=== PATIENT | male | born 1965 | race Caucasian/White ===

== ENCOUNTER 2023-02-01 09:22 | Outpatient (REF) | payer OTHER, SELFPAY ==
[2023-02-01 11:22] LABS: Appearance Urine Clear; Color Urine Yellow; Glucose Urine UA Negative (Negative); Leukocyte Esterase Urine Negative (Negative); Nitrite Urine Negative (Negative); Urine Blood Negative (Negative); Urine Ketones Negative (Negative); Urine Protein Negative (Neg-Trace)
[2023-02-01 11:26] LABS: MANUAL DIFF FLAG NO
[2023-02-01 11:32] LABS: Basophils Percent Auto 0.7 % (0-2); Eosinophils Absolute Auto 0.2 X10*3/uL (0.0-0.4); Eosinophils Percent Auto 2.8 % (0-4); Hematocrit 45.8 % (42.0-52.0); Hemoglobin 15.1 g/dl (14.0-18.0); Imm Gran Abs Auto 0.02 X10*3/uL (0.00-0.03); Imm Gran Pct Auto 0.3 % (0.0-0.4); Lymphocytes Absolute Auto 1.9 X10*3/uL (1.2-4.9); Lymphocytes Percent Auto 32.4 % (20-40); Mean Corpuscular Hemoglobin 31.1 pg (27.0-33.0); Mean Corpuscular Volume 94.2 fL (80.0-98.0); Mean Platelet Volume 11.5 fL (9.4-12.4); Monocytes Absolute Auto 0.6 X10*3/uL (0.1-1.2); Monocytes Percent Auto 11.1 % (2-11); Neutrophils Percent Auto 52.7 % (45-73); Platelet Count 230 X10*3/uL (160-400); Red Blood Count 4.86 X10*6/uL (4.60-5.80); Red Cell Distribution Width 12.5 % (11.0-16.0); White Blood Count 5.8 X10*3/uL (4.8-10.8)
[2023-02-01 12:11] LABS: Alanine Aminotransferase 18 U/L (0-40); Albumin Level 4.1 g/dL (3.5-5.0); Alkaline Phosphatase 61 U/L (39-117); Anion Gap 10 (12-20); Aspartate Amino Transferase 16 U/L (5-37); Bilirubin Total 0.9 mg/dL (0.0-1.0); Blood Urea Nitrogen 11 mg/dL (9-16); Calcium 9.4 mg/dL (8.4-10.2); Carbon Dioxide 26 mmol/L (22-29); Chloride 109 mmol/L (96-108); Cholesterol 151 mg/dL; Estimated Glomerular Filt Rate > 60; Glucose Fasting 103 mg/dL (60-99); HDL Cholesterol 47 mg/dL; LDL Cholesterol Calculated 88 mg/dl; Potassium 4.6 mmol/L (3.3-5.1); Sodium 140 mmol/L (135-145); Total Protein 6.4 g/dL (6.5-8.0); Triglycerides 83 mg/dL
[2023-02-01 12:15] LABS: Prostate Specific Antigen Scr 0.25 ng/mL (<0.05-4.0)
== END 2023-02-01 09:23 | disposition home or self-care (01) ==
LOC: HO.HMGCLDS 09:22
PROVIDERS: PCP Internal Medicine; Visit Provider Internal Medicine
DX: Z00.00 Encounter for general adult medical examination without abnormal findings (principal); Z12.5 Encounter for screening for malignant neoplasm of prostate; E78.00 Pure hypercholesterolemia, unspecified; E66.9 Obesity, unspecified
CPT/HCPCS: 36415; 80053; 80061; 81003; 84153; 85025

== ENCOUNTER → 2023-02-07 08:06 | Outpatient (REF) | payer OTHER, SELFPAY ==
--- NOTE | 2023-02-07 08:08 | CA_ITS ---
Acquisition Time: 2023-02-07 08:54:27 Total Exercise Time: 00:05:01 Test Indications: abn ekg Medications: see h Protocol: ZEFERINO Max HR: 157 BPM 96% of Pred: 163 BPM Max BP: 204/062 mmHG Max Work Load: 7.0 METS pt exercised on std zeferino protocol for 5 min into stage 2. max hr 155-95%max. pvc's in couplets and multifocal. some stdep in ant precordial leads. no c/o cp or sob. no feeling of reported palp. clinically neg but elec positive Referred By: Tristian Cedillo Overread By: DRAKE CEDILLO MD
== END ==
LOC: HO.CARD 08:06
PROVIDERS: PCP Internal Medicine; Visit Provider Internal Medicine
DX: R94.31 Abnormal electrocardiogram [ECG] [EKG] (principal)
CPT/HCPCS: 93017

== ENCOUNTER → 2023-02-08 14:56 | Outpatient (BNVA) | payer OTHER, SELFPAY | PROVIDERS: PCP Internal Medicine; Visit Provider Internal Medicine Cardiovascular Disease | DX: I10 Essential (primary) hypertension (principal); I49.3 Ventricular premature depolarization | CPT/HCPCS: 93005 ==

== ENCOUNTER → 2023-03-13 09:48 | Outpatient (REF) | payer OTHER, SELFPAY ==
--- NOTE | 2023-03-13 09:50 | CA_ITS ---
Transthoracic Echocardiogram Patient (Last, First, Middle): Abiodun Cornelius C Gender: Male Date of : 1965 Age: 57 Procedure Date: 03/13/2023 Procedure Type: Transthoracic Echocardiogram Location: OP Height: 187.96 cm Weight: 108.86 kg BSA: 2.35 m2 Heart Rate: bpm BP: 128 / 80 mmHg Bed And Breakfast Cook: Referring MD: Darrel Katz MD Jewel Bearing Polisher: Darrel Katz MD Symptoms: I49.3 - Ventricular premature depolarization Study Quality: Fair ECG Rhythm: Sinus Conclusions: - Normal left ventricular size, thickness, and systolic function. The visually estimated ejection fraction is between 55-60%. - The basal inferior segment is akinetic. - Normal right ventricular cavity size and systolic function. - There is mild calcification of the aortic valve. Findings Left Ventricle Normal left ventricular size, thickness, and systolic function. The visually estimated ejection fraction is between 55-60%. There is evidence of regional wall motion abnormalities. Diastolic function is normal for age. Wall Motion Rest Echo Findings The basal inferior segment is akinetic. Right Ventricle Normal right ventricular cavity size and systolic function. Atria The left atrium is normal in size. The right atrium is normal in size. Aortic Valve There is mild calcification of the aortic valve. There is no aortic valve stenosis. There is mild aortic valve regurgitation. Aortic valve is not well visualized and cannot rule out bicuspid valve. Mitral Valve The mitral valve appears normal. There is trace mitral valve regurgitation. There is no mitral valve stenosis. Pulmonic Valve Normal pulmonic valve structure and function. There is trace pulmonic valve regurgitation. Tricuspid Valve Normal tricuspid valve structure. There is trace tricuspid valve regurgitation. Normal right atrial pressure. There is no evidence of pulmonary hypertension. Great Vessels All visible segments of the aorta are normal in size. Venous The inferior vena cava is normal in size and collapses greater than 50% with inspiration. Pericardium/Pleural There is no evidence of pericardial effusion. Prior Study Comparison No prior study available for comparison. Measurements 2D Linear Measurements IVSd: 1.02 0.6-0.9/0.6-1.0 cm LVIDd: 4.81 3.9-5.3/4.2-5.9 cm LVIDd Index: 2.05 2.4-3.2/2.2-3.1 cm/m2 LVIDs: 3.17 2.0-3.6 cm LVPWd: 1.02 0.7-1.1 cm Ao Root: 3.30 2.1-3.5 cm LA Diam: 3.80 2.7-3.8/3.0-4.0 cm LAIDs Index: 1.62 1.5-2.3 cm/m2 LV Mass: 218.54 67-162/88-224 g LV Mass Index: 93.00 43-95/49-115 g/m2 LVOT Diam: 2.40 3.0+(-)1.3 cm 2D Systolic Function EF 4C: 59.70 >55% EF 2C: 55.00 >55% EF BiP: 59.10 >55% Mitral Valve MV Pk E: 0.79 MV PK A: 0.59 MV Decel Time: 209.00 E/A: 1.30 E'Lateral: 11.20 E'Medial: 7.94 E/E' Med: 9.90 E/E' Lat: 7.00 PHT: 61.00 MVA PHT: 3.61 Decel Leon: 3.77 Aortic Valve AoV Pk Linus: 1.08 AoV Mn Linus: 0.74 AoV VTI: 0.26 AoV Pk Grad: 5.00 Aov Mn Grad: 3.00 SHREE Cont.VTI: 3.27 LVOT LVOT Pk Linus: 0.78 LVOT Mn Linus: 0.51 LVOT VTI: 0.19 LVOT Pk Grad: 2.00 LVOT Mn Grad: 1.00 LVOT Diam: 2.40 LVOT Area: 4.52 Diastolic Function MV Pk E: 0.79 MV Pk A: 0.59 E/A: 1.30 E'Medial: 7.94 E/E' Med: 9.90 E' Laterial: 11.20 E/E' Lat: 7.00 Right Ventricle TAPSE (mm): 25.00 TVS' Linus: 12.00 Tricuspid Valve TR Pk Linus: 2.60 TR Pk Grad: 27.00 RA Press: 3.00 RVSP: 30.00 Great Vessels Aorta Ao Root-2D: 3.30 2.0-3.7 cm Ao Asc: 3.30 2.1-3.4 cm Ao Arch: 3.30 Pulmonary Valve PV Pk Linus: 0.96 Peak PV Grad: 4.00 Updated in Other Vendor System with Status of Final Darrel Katz MD electronically signed on 03/14/2023 10:34:05 AM with status of Final
--- NOTE | 2023-03-13 09:50 | HM_ITS ---
Conclusion: 1. Patient was monitored for total period of 3 days 2. Baseline was normal sinus rhythm with average heart of 67 beats per minute 3. No significant pauses greater than 2.5 seconds noted 4. Rare ectopy noted 5. No patient reported events MTDD
== END ==
LOC: HO.CARD 09:48
PROVIDERS: PCP Internal Medicine; Visit Provider Internal Medicine Cardiovascular Disease
DX: I49.3 Ventricular premature depolarization (principal)
CPT/HCPCS: 93242; 93306

== ENCOUNTER → 2023-03-21 14:34 | Outpatient (BNVA) | payer OTHER, SELFPAY | PROVIDERS: PCP Internal Medicine; Visit Provider Internal Medicine Cardiovascular Disease ==

== ENCOUNTER 2023-04-11 09:16 | Outpatient (REF) | payer OTHER, SELFPAY ==
[2023-04-11 20:08] LABS: Anion Gap 10 (12-20); Blood Urea Nitrogen 18 mg/dL (9-16); Calcium 8.6 mg/dL (8.4-10.2); Carbon Dioxide 26 mmol/L (22-29); Chloride 107 mmol/L (96-108); Estimated Glomerular Filt Rate > 60; Glucose Random 84 mg/dL (60-115); Potassium 4.2 mmol/L (3.3-5.1); Sodium 139 mmol/L (135-145)
== END 2023-04-11 09:17 | disposition home or self-care (01) ==
LOC: HO.HMGCLDS 09:16
PROVIDERS: PCP Internal Medicine; Visit Provider Internal Medicine Cardiovascular Disease
DX: I49.3 Ventricular premature depolarization (principal)
CPT/HCPCS: 36415; 80048

== ENCOUNTER 2023-09-18 15:07 | Outpatient (AMB) | payer OTHER, SELFPAY ==
[2023-09-18 15:09] VITALS: BP 120/80; PULSE 78; BMI 32.9
--- NOTE | 2023-09-18 15:09 | A.OFFVIS_ITS ---
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 It appears that this is the internal medicine office recently and his pulse was noticed to be irregular. Subsequent to that he had exercise stress test where he exercised 5 mins. He was noticed to have multifocal PVCs, frequent PVCs. He was also noticed to have precordial ST depressions. He did not have any CP or SOB. He is here for further work up. He is not very active physically and gets no significant symptoms in day to day life. He did have similar issues 15 years ago and at time had a normal stress test. He has high BP but reports white coat hypertension. He is on Atorvastatin 20 mg. After discussion she was started on carvedilol 6.25 mg B i.d.. Was referred for echocardiography. Echocardiography showed normal left ventricular ejection fraction of 55-60% with normal diastolic function but the basal inferior wall was akinetic. He was brought back for follow-up. He has no symptoms on follow-up and denies chest pain or shortness of breath. His blood pressure control is much better after starting carvedilol. Report of the echocardiography was discussed with the patient detail. 09/18/2023: He returns for follow-up. Chris kellogg has been doing well. No chest discomfort shortness of breath. He has been doing well with the current medications. Blood pressure control is good. He had coronary CTA performed in April 2023 which showed no evidence of hemodynamically significant coronary artery disease. Minimal plaque was noticed in the LAD. Clinically has been stable on the current medications. [facility] Surgical History No pertinent past surgical history Family History Mother HTN (hypertension) Father HTN (hypertension) Social History Alcohol intake: current Alcohol intake frequency: a few times a week Patient Tobacco Use Status: Never used Tobacco Review of Systems Const Denies chills, Denies fatigue, Denies fever(s), Denies frequent falls, Denies weakness, Denies weight gain and Denies weight loss ENT Denies dizziness Card Denies chest pain, Denies leg edema, Denies lightheadedness, Denies palpitations, Denies dyspnea, Denies dyspnea on exertion, Denies orthopnea and Denies other (loss of consciousness) Resp Denies cough, Denies dyspnea and Denies dyspnea on exertion GI Denies hematochezia and Denies change in stool character Musc Denies abnormal gait, Denies muscle weakness, Denies numbness, Denies radiating pain into limb and Denies tingling Neuro Denies abnormal gait, Denies dizziness, Denies frequent falls, Denies numbness, Denies tingling and Denies weakness Endo Denies fatigue and Denies palpitations Physical Exam Vital Signs: Last Vital Signs Pulse 78 09/18/23 15:09 BP 120/80 09/18/23 15:09 BMI result Body Mass Index 32.9 GENERAL APPEARANCE: in no acute distress, pleasant. Anxious appearing. NECK: no carotid bruit, no jugular venous distention. SKIN: no suspicious lesions, warm and dry. HEART: no murmurs, regular rate and rhythm. LUNGS: clear to auscultation bilaterally. ABDOMEN: soft, nontender. EXTREMITIES: no edema. Palms are sweaty. PERIPHERAL PULSES: equal. NEUROLOGIC: No gross deficits, AAO X 3 Assessment & Plan Assessment & Plan (1) Essential hypertension: Code(s): I10 - Essential (primary) hypertension (2) PVC (premature ventricular contraction): Code(s): I49.3 - Ventricular premature depolarization Plan Pleasant 58 year gentleman is here for follow-up. He has background of premature ventricular complexes which are well suppressed with carvedilol 6.25 mg twice a day. Blood pressure control is good. He is on atorvastatin 20 mg once a day. He should have fasting lipid panel once a year with a target LDL less than 70 given presence of minimal disease on coronary CTA. Stable otherwise. Can follow-up with us in 1 year. Thank you for allowing me to participate in the care of your patient. Please feel free to contact me if you have any questions. Coding Level of Care Code Est Pt Level 4 (37722) Diagnoses Essential hypertension I10 PVC (premature ventricular contraction) I49.3
== END 2023-09-18 15:32 | disposition home or self-care (01) ==
PROVIDERS: PCP Internal Medicine; Visit Provider Internal Medicine Cardiovascular Disease
DX: I10 Essential (primary) hypertension (principal); I49.3 Ventricular premature depolarization
CPT/HCPCS: 99214

== ENCOUNTER → 2023-09-18 15:07 | Outpatient (BNVA) | payer OTHER, SELFPAY | PROVIDERS: PCP Internal Medicine; Visit Provider Internal Medicine Cardiovascular Disease ==

== ENCOUNTER → 2024-09-07 08:49 | Outpatient (AMB) | payer BC, SELFPAY ==
[2024-09-07 09:17] VITALS: BP 140/72; PULSE 67; BMI 33.0
--- NOTE | 2024-09-07 09:17 | MHC.OFFVIS ---
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 It appears that this is the internal medicine office recently and his pulse was noticed to be irregular. Subsequent to that he had exercise stress test where he exercised 5 mins. He was noticed to have multifocal PVCs, frequent PVCs. He was also noticed to have precordial ST depressions. He did not have any CP or SOB. He is here for further work up. He is not very active physically and gets no significant symptoms in day to day life. He did have similar issues 15 years ago and at time had a normal stress test. He has high BP but reports white coat hypertension. He is on Atorvastatin 20 mg. After discussion she was started on carvedilol 6.25 mg B i.d.. Was referred for echocardiography. Echocardiography showed normal left ventricular ejection fraction of 55-60% with normal diastolic function but the basal inferior wall was akinetic. He was brought back for follow-up. He has no symptoms on follow-up and denies chest pain or shortness of breath. His blood pressure control is much better after starting carvedilol. Report of the echocardiography was discussed with the patient detail. 09/18/2023: He returns for follow-up. He has been doing well. No chest discomfort shortness of breath. He has been doing well with the current medications. Blood pressure control is good. He had coronary CTA performed in April 2023 which showed no evidence of hemodynamically significant coronary artery disease. Minimal plaque was noticed in the LAD. Clinically has been stable on the current medications. 09/07/2024: He is here for follow-up. Denying any symptoms. Over the holidays he has gained some weight. His blood pressure is elevated. He is saying that he has been missing carvedilol at times and has been taking it once a day. Some days he remembers and takes it twice a day. Blood pressure manually is 140/80. [facility] Surgical History No pertinent past surgical history Family History Mother HTN (hypertension) Father HTN (hypertension) Social History Alcohol intake: current Alcohol intake frequency: a few times a week Patient Tobacco Use Status: Never used Tobacco Review of Systems Const Denies chills, Denies fatigue, Denies fever(s), Denies frequent falls, Denies weakness, Denies weight gain and Denies weight loss ENT Denies dizziness Card Denies chest pain, Denies leg edema, Denies lightheadedness, Denies palpitations, Denies dyspnea and Denies dyspnea on exertion Resp Denies cough, Denies dyspnea and Denies dyspnea on exertion GI Denies hematochezia Musc Denies abnormal gait, Denies muscle weakness, Denies numbness, Denies radiating pain into limb and Denies tingling Neuro Denies abnormal gait, Denies dizziness, Denies frequent falls, Denies numbness, Denies tingling and Denies weakness Endo Denies fatigue and Denies palpitations Physical Exam Vital Signs: Last Vital Signs Pulse 67 09/07/24 09:17 BP 140/72 H 09/07/24 09:17 BMI result Body Mass Index 33.0 GENERAL APPEARANCE: in no acute distress, pleasant. NECK: no carotid bruit, no jugular venous distention. SKIN: no suspicious lesions, warm and dry. HEART: no murmurs, regular rate and rhythm. LUNGS: clear to auscultation bilaterally. ABDOMEN: soft, nontender. EXTREMITIES: no edema. Palms are sweaty. PERIPHERAL PULSES: equal. NEUROLOGIC: No gross deficits, AAO X 3 Office Procedures EKG Details: Sinus rhythm 67 beats per minute, normal axis, QTC 422 milliseconds. [id number], Complete Assessment & Plan Assessment & Plan (1) Essential hypertension: Code(s): I10 - Essential (primary) hypertension Category: Medical (2) PVC (premature ventricular contraction): Code(s): I49.3 - Ventricular premature depolarization Category: Medical Plan Pleasant 59-year-old gentleman who is here for follow-up. He has background of premature ventricular complexes which are well suppressed with carvedilol 6.25 mg. Blood pressure is elevated and he has not been taking carvedilol b.i.d. and has been missing doses. I have advised him to take it twice a day for the next 2 weeks and then we will bring him back for blood pressure check with 1 of the nurses. He is on atorvastatin 20 mg once a day. He should have fasting lipid panel once a year with a target LDL less than 70 given presence of minimal disease on coronary CTA. Stable otherwise. Can follow-up with us in 1 year. Thank you for allowing me to participate in the care of your patient. Please feel free to contact me if you have any questions. Coding Level of Care Code Est Pt Level 4 (98425) Diagnoses Essential hypertension I10 PVC (premature ventricular contraction) I49.3 CPT Codes EKG - CPT: 20809-[id number], Complete ([id number])
== END ==
PROVIDERS: PCP Internal Medicine; Visit Provider Internal Medicine Cardiovascular Disease
DX: I10 Essential (primary) hypertension (principal); I49.3 Ventricular premature depolarization
CPT/HCPCS: 93010; 99214

== ENCOUNTER 2025-05-27 10:05 | Outpatient (REF) | payer BC, SELFPAY ==
[2025-05-27 13:23] LABS: MANUAL DIFF FLAG NO
[2025-05-27 13:30] LABS: Hematocrit 43.7 % (42.0-52.0); Hemoglobin 14.9 g/dl (14.0-18.0); Imm Gran Abs Auto 0.01 X10*3/uL (0.00-0.03); Imm Gran Pct Auto 0.2 % (0.0-0.4); Lymphocytes Absolute Auto 1.5 X10*3/uL (1.2-4.9); Mean Corpuscular HGB Conc 34.1 g/dl (31.0-36.0); Mean Corpuscular Hemoglobin 32.0 pg (27.0-33.0); Mean Corpuscular Volume 93.8 fL (80.0-98.0); NRBC Abs Auto 0.000 X10*3/uL (0.0-0.012); NRBC Pct Auto 0.0 /100WBC (0.0-0.2); Platelet Count 235 X10*3/uL (160-400); Red Blood Count 4.66 X10*6/uL (4.60-5.80); White Blood Count 4.6 X10*3/uL (4.8-10.8)
[2025-05-27 13:40] LABS: Alanine Aminotransferase 19 U/L (0-40); Albumin Level 4.4 g/dL (3.5-5.0); Alkaline Phosphatase 55 U/L (39-117); Anion Gap 12 (12-20); Aspartate Amino Transferase 23 U/L (5-37); Blood Urea Nitrogen 14 mg/dL (9-16); Calcium 9.1 mg/dL (8.4-10.2); Carbon Dioxide 25 mmol/L (22-29); Chloride 109 mmol/L (96-108); Cholesterol 150 mg/dL (<200); Estimated Glomerular Filt Rate > 60; HDL Cholesterol 48 mg/dL (>40); Hemoglobin A1C 142.0809 umol/L; Potassium 4.4 mmol/L (3.3-5.1); Sodium 142 mmol/L (135-145); Total Hemoglobin (HGBA1C) 3807.0444 umol/L; Total Protein 6.6 g/dL (6.5-8.0); Triglycerides 87 mg/dL (<150)
[2025-05-27 13:59] LABS: Prostate Specific Antigen 0.34 ng/mL (<0.05-4.0)
== END 2025-05-27 10:06 | disposition home or self-care (01) ==
LOC: HO.HMGCLDS 10:05
PROVIDERS: PCP Physician Assistant; Visit Provider Physician Assistant
DX: I10 Essential (primary) hypertension (principal); E78.5 Hyperlipidemia, unspecified; Z12.5 Encounter for screening for malignant neoplasm of prostate; Z13.1 Encounter for screening for diabetes mellitus
CPT/HCPCS: 36415; 80048; 80061; 80076; 83036; 84153; 85025

== ENCOUNTER 2025-06-02 08:53 | Outpatient (AMB) | payer BC, SELFPAY ==
[2025-06-02 08:15] VITALS: BP 138/82; PULSE 72; TEMP 36.3; O2SAT 98; BMI 31.9
--- NOTE | 2025-06-02 08:15 | A.OFFPC_ITS ---
Vital Signs 06/02/25 08:15 Height 6 ft 1 in Weight 242 lb BMI 31.9 BP 138/82 Blood Pressure Location Lt brachial Position Sitting Pulse 72 Pulse Source Pulse Oximeter Temp 97.4 F Temp Source Temporal Artery Scan Pulse Oximetry (%) 98 Oxygen Delivery Method Room Air Intake Visit Reasons: over due OV Phd Intern Required: No Accompanied by: Self / Same As Patient Allergies No Known Allergies (No Known Allergies*) Allergy (Verified 06/02/25 08:16) Medication List - Last Reconciled 06/02/25 by DENI Matthew atorvastatin (Lipitor) 20 mg PO BEDTIME carvedilol 6.25 mg PO BID 90 days Tobacco use date assessed: 06/02/25 Dental Screening Dental Screen Date: 06/02/25 Did you have a dental visit in the last 12 months?: Yes Did you have a dental problem in the last 6 months where you did not have access to dental care?: No HPI HPI Comments History of Present Illness Details The patient is a 59-year-old male with HLD and HTN presenting to [facility] care and management of chronic conditions. The patient has a history of hyperlipidemia, currently managed with atorvastatin 20 mg daily, with recent cholesterol levels at 150 mg/dL, indicating good control. He also has hypertension, managed with carvedilol twice daily, with no reported issues or side effects from the medication. His BP today was 138/82 The patient reports presbyopia, using reading glasses as needed, and acknowledges the need for an eye examination, which is being arranged by his spouse. He experiences seasonal allergies, particularly in the fall, with mild symptoms noted recently. The patient has a scalyt lesion on his head, which is not causing any discomfort. Chronic back pain is noted, with severe episodes occurring infrequently, the last being over a year ago. He manages mild episodes with ibuprofen and has previously been prescribed prednisone during severe episodes, which provided relief. [facility] Medical History (Updated 06/02/25 @ 09:43 by DENI Matthew) HLD (hyperlipidemia) Intermittent low back pain Keratosis, seborrheic Obesity (BMI 30.0-34.9) Presbyopia Seasonal allergic rhinitis Surgical History No pertinent past surgical history Family History Mother HTN (hypertension) Father HTN (hypertension) Social History Housing: House Alcohol intake: current Alcohol intake frequency: a few times a week Patient Tobacco Use Status: Never used Tobacco e-Cigarette/Vaping Use: Never Used service: No Current occupational status: employed Cognitive needs: No Hearing needs: No Vision needs: Yes (reading glasses) Questionnaire PHQ-9 Over the last 2 weeks, how often have you been bothered by any of the following problems? 1. Little interest or pleasure in doing things: not at all 2. Feeling down, depressed, or hopeless: not at all 3. Trouble falling or staying asleep, or sleeping too much: not at all 4. Feeling tired or having little energy: not at all 5. Poor appetite or overeating: not at all 6. Feeling bad about yourself - or that you are a failure or have let yourself or your family down: not at all 7. Trouble concentrating on things, such as reading the newspaper or watching television: not at all 8. Moving or speaking so slowly that other people could have noticed. Or the opposite - being so fidgety or restless that you have been moving around a lot more than usual: not at all 9. Thoughts that you would be better off or of hurting yourself in some way: not at all Total score: 0 Source: Developed by Drs. Conner Shirley, Jeannie Araiza, Diogo Rodriguez and colleagues, with an educational dorian from [employer]. Thrive Questionnaire Date Thrive assessed: 06/02/25 I am a: Patient Within the past 12 months, did the food you bought not last and you didn't have the money to get more?: Never true Within the past 12 months, did you worry whether your food would run out before you got money to buy more?: Never true Do you have trouble paying for medicines?: No Do you have trouble getting transportation to medical appointments?: No Do you have trouble paying your heating and electricity bill?: No Do you have trouble taking care of your child, family member or friend?: No Do you have trouble with day-to-day activities such as bathing, preparing meals, shopping, managing finances, etc.?: No Are you currently unemployed and looking for a job?: No Are you interested in more education?: No THRIVE Score: 0 AUDIT C Alcohol Use Questionnaire (AUDIT-C) 1. How often do you have a drink containing alcohol?: Monthly or less 2. How many drinks containing alcohol do you have on a typical day when you are drinking?: 1 or 2 3. How often do you have six or more drinks on one occasion?: Less than monthly Total Score: 2 ABEBA-7 AMB Questionnaire ABEBA-7 Date ABEBA - 7 assessed: 06/02/25 Feeling nervous, anxious, or on edge: 0 = Not at all Not being able to stop or control worryin = Not at all Worrying too much about different things: 0 = Not at all Trouble relaxin = Not at all Being so restless that it is hard to sit still: 0 = Not at all Becoming easily annoyed or irritable: 0 = Not at all Feeling afraid as if something awful might happen: 0 = Not at all Total ABEBA-7 score (0-4 normal; 5-9 mild; 10-14 moderate; 15-21 severe): 0 Source: Developed by Drs. Conner Shirley, Jeannie Araiza, Diogo Rodriguez and colleagues, with an educational dorian from [employer]. Review of Systems Const Details: CONSTITUTIONAL Negative HEAD/NECK Negative EAR/NOSE/MOUTH/THROAT reports mild seasonal allergy symptoms Denies hearing loss, reports presbyopia RESPIRATORY Negative CARDIOVASCULAR Negative Denies chest pain, dyspnea, edema or palpitations GASTROINTESTINAL Reports occasional heartburn MUSCULOSKELETAL Reports occasional back pain, denies joint pain NEUROLOGICAL Negative PSYCHIATRIC Negative Physical exam (Primary Care) Vital Signs: Last Vital Signs Temp 97.4 F 06/02/25 08:15 Pulse 72 06/02/25 08:15 BP 138/82 06/02/25 08:15 Pulse Ox 98 06/02/25 08:15 Oxygen Delivery Method Room Air 06/02/25 08:15 BMI result Body Mass Index 31.9 GENERAL Well developed, obese, in no apparent distress HEENT Head-Normocephalic Eyes- PERRLA, EOMI, Conjuctiva clear, lids WNL Ears- Canals clear, TMs WNL Mouth/Throat-No lesions, no erythema, no exudate Neck- Supple, No lymphadenopathy, thyroid WNL RESPIRATORY Normal I:E, Clear to auscultation CARDIOVASCULAR Regular, rate and rhythm, No murmurs or rubs GASTROINTESTINAL Soft, nontender, normal bowel sounds, no masses NEUROLOGICAL Gait normal PSYCHIATRIC Oriented to person, place and time Mood and affect WNL Appearance WNL Speech WNL Thought processes WNL Tobacco/Smoking Status: Tobacco use Status Tobacco use date assessed 06/02/25 06/02/25 08:17 Patient Tobacco Use Status Never used Tobacco 06/02/25 08:17 e-Cigarette/Vaping Use Never Used 06/02/25 08:17 PHQ-9: PHQ-9 Score PHQ-9: Total score 0 06/02/25 09:11 Thrive Assessment: Date of Thrive Assessment Date Thrive assessed 06/02/25 06/02/25 08:17 Results Reviewed Results Reviewed: Findings Left Ventricle Normal left ventricular size, thickness, and systolic function. The visually estimated ejection fraction is between 55-60%. There is evidence of regional wall motion abnormalities. Diastolic function is normal for age. - Labs: Cholesterol 150 mg/dL, normal blood count, liver and kidney function tests normal done 05/28/25. Coding Level of Care Code New Pt New Pt Level 4 (36105) Patient Type New Diagnoses Essential hypertension I10 Pure hypercholesterolemia E78.00 Hyperlipidemia type: pure hypercholesterolemia Presbyopia H52.4 Seasonal allergic rhinitis due to pollen J30.1 Allergic rhinitis trigger: pollen Keratosis, seborrheic L82.1 Intermittent low back pain M54.50 Obesity (BMI 30.0-34.9) E66.811 Time Spent (min) 35 Comment Time spent on chart review, H&P, medication reconciliation, patient education and orders. Assessment & Plan Assessment & Plan (1) Essential hypertension: Comment: BP today was 138/82 Code(s): I10 - Essential (primary) hypertension Category: Medical Plan: The patient is on carvedilol 6.25mg twice daily for hypertension management, with no reported side effects or issues. Regular monitoring of blood pressure is recommended, with medication refills to be managed as needed. Patient to follow up in 6 months or sooner if symptoms persist or worsen. (2) HLD (hyperlipidemia): Code(s): E78.5 - Hyperlipidemia, unspecified Category: Medical Qualifiers: Hyperlipidemia type: pure hypercholesterolemia Qualified Code(s): E78.00 - Pure hypercholesterolemia, unspecified Plan: The patient is currently on atorvastatin 20 mg daily, which has effectively managed his cholesterol levels, currently at 150 mg/dL. Continued adherence to this medication is advised, with follow-up blood work planned in six months to monitor lipid levels. (3) Presbyopia: Code(s): H52.4 - Presbyopia Category: Medical Plan: The patient uses reading glasses for presbyopia and plans to have an eye examination arranged by his spouse. No immediate intervention is required unless vision changes significantly. (4) Seasonal allergic rhinitis: Code(s): J30.2 - Other seasonal allergic rhinitis Category: Medical Qualifiers: Allergic rhinitis trigger: pollen Qualified Code(s): J30.1 - Allergic rhinitis due to pollen Plan: The patient experiences mild seasonal allergies, particularly in the fall, with no significant impact on daily activities. Symptomatic treatment can be considered if symptoms worsen. (5) Keratosis, seborrheic: Code(s): L82.1 - Other seborrheic keratosis Category: Medical Plan: The patient has a seborrheic keratosis on his head, which is benign and not causing discomfort. No treatment is necessary unless it becomes bothersome, in which case removal can be considered. (6) Intermittent low back pain: Code(s): M54.50 - Low back pain, unspecified Category: Medical Plan: The patient experiences chronic back pain with infrequent severe episodes, managed with ibuprofen and previously with prednisone during severe episodes. Continued use of ibuprofen for mild episodes is advised, with consideration for further evaluation if episodes increase in frequency or severity. (7) Obesity (BMI 30.0-34.9): Comment: BMI today was 31.9 Code(s): E66.811 - Obesity, class 1 Category: Medical Plan: Discussed the health risks of obesity with the patient. Reviewed benefits of even moderate weight loss with the patient. Patient will gradually try and increase exercise to 30-40 min 5-7 times per week. We discussed the patient adding more fruits and vegetables to their diet. Will monitor weight and follow up in 6 months. Plan - Routine wellness visit conducted - Blood work reviewed with normal results - Eye examination planned - Six-month follow-up scheduled During the visit, we discussed the patient's current management of hyperlipidemia and hypertension, both of which are well-controlled with current medications. We reviewed the benign nature of the seborrheic keratosis and advised against picking at it. The patient was informed about the importance of regular eye examinations due to presbyopia and the management of seasonal allergies if symptoms worsen. We also discussed the management of low back pain, emphasizing the use of ibuprofen for mild episodes and the potential use of prednisone for severe episodes. A six-month follow-up was scheduled to reassess the patient's condition and medication needs. Medications: New atorvastatin (Lipitor) 20 mg PO BEDTIME 90 tabs 1RF for cholesterol Discontinued atorvastatin Discontinued Reason: Doctor's Order 20 mg PO DAILY 30 tabs 0RF Patient Instructions: - Continue taking atorvastatin and carvedilol as prescribed. - Schedule an eye examination for presbyopia. - Use ibuprofen for mild back pain episodes. - Avoid picking at the seborrheic keratosis. - Return for a follow-up in six months.
== END 2025-06-02 09:49 | disposition home or self-care (01) ==
LOC: HO.HMCHD 08:54
PROVIDERS: PCP Internal Medicine; Visit Provider Physician Assistant Medical
DX: I10 Essential (primary) hypertension (principal); E78.00 Pure hypercholesterolemia, unspecified; E66.811 Obesity, class 1; Z68.31 Body mass index [BMI] 31.0-31.9, adult; H52.4 Presbyopia; J30.1 Allergic rhinitis due to pollen; L82.1 Other seborrheic keratosis; M54.50 Low back pain, unspecified

== ENCOUNTER 2025-09-13 13:22 | Outpatient (AMB) | payer BC, SELFPAY ==
[2025-09-13 13:31] VITALS: BP 126/78; PULSE 61; BMI 32.8
--- NOTE | 2025-09-13 13:31 | A.OFFVIS_ITS ---
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 Patient with hypertension and hyperlipidemia who was previously referred to us for an abnormal stress test however patient underwent a coronary CTA that showed mild CAD. Today, patient is reporting feeling well overall without any cardiac symptoms of exertional chest pain, shortness of breath, palpitations, dizziness, orthopnea, PND, leg edema, presyncope, or syncope. Patient is reporting compliance with all his medications. [facility] Medical History Obesity (BMI 30.0-34.9) Intermittent low back pain Keratosis, seborrheic Seasonal allergic rhinitis Presbyopia HLD (hyperlipidemia) Surgical History No pertinent past surgical history Family History Mother HTN (hypertension) Father HTN (hypertension) Social History Housing: House Alcohol intake: current Alcohol intake frequency: a few times a week Patient Tobacco Use Status: Never used Tobacco e-Cigarette/Vaping Use: Never Used service: No Current occupational status: employed Cognitive needs: No Hearing needs: No Vision needs: Yes (reading glasses) Review of Systems Const Denies daytime sleepiness, Denies difficulty sleeping, Denies snoring, Denies stops breathing during sleep and Denies weakness Card Denies chest pain, Denies rapid heart rate, Denies irregular heart rhythm, Denies claudication, Denies leg edema, Denies lightheadedness, Denies palpitations, Denies dyspnea, Denies dyspnea on exertion, Denies orthopnea, Denies paroxysmal nocturnal dyspnea and Denies slow heart rate Resp Denies cough, Denies dyspnea, Denies dyspnea on exertion and Denies snoring GI Reports no additional complaints, Denies hematochezia, Denies change in stool character and Denies dyspepsia Musc Denies abnormal gait, Denies muscle weakness and Denies numbness Neuro Denies abnormal gait, Denies numbness and Denies weakness Endo Denies palpitations Physical Exam Vital Signs: Last Vital Signs Pulse 61 09/13/25 13:31 BP 126/78 09/13/25 13:31 BMI result Body Mass Index 32.8 Const General: cooperative, healthy appearing, comfortable and no acute distress Orientation/consciousness: patient oriented x3 HEENT Head: Yes normal to inspection Neck Neck: Yes normal visual inspection, Yes trachea midline and Yes supple Chest Chest palpation & inspection: normal inspection of the chest Resp Effort & Inspection: normal respiratory effort Auscultation: clear to auscultation bilaterally, no crackles, no rales, no rhonchi and no wheezes Cardio Jugular venous distension: no JVD Palpation: normal PMI Rate: regular rate Rhythm: regular rhythm Heart sounds: S1 normal heart sound present, S2 normal heart sound present, no click, no gallops, no murmurs and no rubs Peripheral pulses: Peripheral pulses 2+ throughout GI Inspection: Yes normal to inspection Palpation (GI): Soft to palpation Auscultation: normal bowel sounds Skin General skin exam: no rashes or lesions noted Neuro General: patient oriented x3 Extrem General: Yes normal to inspection, No no pedal edema and No calf tenderness Psych Appearance: grossly normal Mental Status: mental status grossly normal Speech and movement: Normal speech and movement present Office Procedures EKG Details: EKG today shows normal sinus rhythm, rate 61 beats per minute, nonspecific STT wave, [place], [place]. [id number], Complete Assessment & Plan Assessment & Plan (1) Mild CAD: Code(s): I25.10 - Atherosclerotic heart disease of [place] coronary artery without angina pectoris Category: Medical Plan: 03/13/2023-echo study showed a normal LV systolic function with an ejection fraction between 55-60%, akinetic basal inferior segment, and mild calcification of the aortic valve. 04/19/2023-coronary CTA showed mild coronary artery disease in the LAD and RCA (motion artifact limitation). Clinically stable and without any cardiac symptoms. Most recent LDL 85, not within goal of LDL less than 70. We will increase atorvastatin to 40 mg daily. Advised on heart healthy diet. We will repeat lipid profile in 3 months. (2) PVC (premature ventricular contraction): Code(s): I49.3 - Ventricular premature depolarization Category: Medical Plan: 03/13/2023-Holter study showed underlying normal sinus rhythm with rare PACs and PVCs. (3) Essential hypertension: Code(s): I10 - Essential (primary) hypertension Category: Medical Plan: Blood pressure today is well-controlled. Continue carvedilol therapy. Advised on monitoring blood pressures at home with a goal less than 130/80. Advised on low-salt diet. (4) HLD (hyperlipidemia): Code(s): E78.5 - Hyperlipidemia, unspecified Category: Medical Qualifiers: Hyperlipidemia type: pure hypercholesterolemia Qualified Code(s): E78.00 - Pure hypercholesterolemia, unspecified Plan: As above. Advised on heart healthy diet, regular exercise, med compliance, and aggressive management of vascular risk factors. Follow up in 1 year, sooner if needed. In the interim, patient will call the office with any concerns or change in symptoms. This note was generated using voice recognition software. While every effort has been made to ensure accuracy and proper collar pointer, there may be occasional errors that could affect the content or meaning of the described symptoms. Orders: Orders Lipid Panel Today E78.00 - Pure hypercholesterolemia, unspecified AMB EKG-In Office Today I25.10 - Atherosclerotic heart disease of [place] coronary artery without angina pectoris Medications: New atorvastatin (Lipitor) 40 mg PO DAILY 90 tabs 3RF Discontinued atorvastatin (Lipitor) Discontinued Reason: Doctor's Order 20 mg PO BEDTIME 90 tabs 1RF for cholesterol Coding Level of Care Code Est Pt Level 4 (00105) Add On Problem Visit Only Diagnoses Mild CAD I25.10 PVC (premature ventricular contraction) I49.3 Essential hypertension I10 Pure hypercholesterolemia E78.00 Hyperlipidemia type: pure hypercholesterolemia CPT Codes EKG - CPT: 66067-[id number], Complete ([id number]) Time Spent (min) 31 Comment Time spent in reviewing the chart, test results, assessment, counseling and documentation.
== END 2025-09-13 13:56 | disposition home or self-care (01) ==
LOC: HO.HCS 13:23
PROVIDERS: PCP Internal Medicine
DX: I25.10 Atherosclerotic heart disease of native coronary artery without angina pectoris (principal); I49.3 Ventricular premature depolarization; I10 Essential (primary) hypertension; E78.00 Pure hypercholesterolemia, unspecified
CPT/HCPCS: 93010; 99214

== ENCOUNTER → 2025-09-13 13:22 | Outpatient (BNVA) | payer BC, SELFPAY | PROVIDERS: PCP Internal Medicine | DX: I25.10 Atherosclerotic heart disease of native coronary artery without angina pectoris (principal); I49.3 Ventricular premature depolarization; E78.00 Pure hypercholesterolemia, unspecified; I10 Essential (primary) hypertension; Z79.899 Other long term (current) drug therapy; Z71.82 Exercise counseling; Z71.3 Dietary counseling and surveillance; Z68.32 Body mass index [BMI] 32.0-32.9, adult | CPT/HCPCS: 93005 ==